=== PATIENT | male | born 1985 | race Caucasian/White ===

== ENCOUNTER 2021-03-29 10:46 | Emergency (ER) | payer BC, OTHER ==
[~2021-03-29] VITALS: Ht 182.8 cm; Wt 111.1 kg
[2021-03-29] MEDS ORDERED: NS IV 1000 ML 1,000 ML ONE (10:54)
--- NOTE | 2021-03-29 11:02 | ED Cardiac General ---
History of Present Illness General Stated Complaint: ELEV HR; CHEST PAIN Source: patient Exam Limitations: no limitations History of Present Illness Date Seen by Provider: Mar 29, 2021 Time Seen by Provider: 10:46 Initial Comments 36-year-old male with no significant past medical history coming in because he feels like his heart is racing. This started roughly 20 minutes prior to arrival. He states he has never had anything like this happen before. His symptoms he says are moderate to severe, constant, nothing he does seems to make it go away in the last 20 minutes. Denies any real chest pain, shortness of breath, fever, nausea, vomiting, abdominal pain, diarrhea, dysuria, weakness, numbness, or any other concerns. Denies any family history of early cardiac . Denies any personal history of blood clots in his legs or lungs. He says he drinks alcohol but only a small amount, denies tobacco use, denies any drug use. He states he drinks 1 soda a day, but otherwise not drink any caffeine or other stimulants. Allergies and Home Medications Allergies Coded Allergies: No Known Drug Allergies (Unverified , 03/29/21) Patient Home Medication List Home Medication List Reviewed: Yes Review of Systems Review of Systems Constitutional: No fever EENTM: No Blurred Vision Respiratory: Denies Cough, Denies Shortness of Air Cardiovascular: Denies Chest Pain; Palpitations Gastrointestinal: Denies Abdominal Pain, Denies Diarrhea, Denies Nausea, Denies Vomiting Genitourinary: Denies Burning Musculoskeletal: No back pain Skin: No rash Psychiatric/Neurological: Denies Anxiety, Denies Depressed Endocrine: No Symptoms Reported Hematologic/Lymphatic: No Symptoms Reported All Other Systems Reviewed Negative Unless Noted: Yes Past [id number] Hx Patient Social History Tobacco Use?: No Substance use?: No Alcohol Use?: Yes Alcohol Frequency: Once in a while Past Medical History Surgeries: No Family Medical History No Pertinent Family Hx Physical Exam Vital Signs Capillary Refill : Height, Weight, BMI Height: '" Weight: lbs. oz. kg; BMI Method: General Appearance: No Apparent Distress, WD/WN HEENT: PERRL/EOMI, Normal ENT Inspection, Pharynx Normal Neck: Full Range of Motion, Normal Inspection, Supple Respiratory: Chest Non Tender, Lungs Clear, Normal Breath Sounds, No Accessory Muscle Use, No Respiratory Distress Cardiovascular: No Edema, No Murmur, Normal Peripheral Pulses, Tachycardia Gastrointestinal: Normal Bowel Sounds, Non Tender, Soft; No Distended, No Guarding Extremity: Normal Capillary Refill, Normal Inspection, Normal Range of Motion, Non Tender, No Calf Tenderness Neurologic/Psychiatric: Alert, No Motor/Sensory Deficits, Normal Mood/Affect Skin: Normal Color, Warm/Dry Lymphatic: No Adenopathy Progress/Results/Core Measures Results/Orders My Orders Orders - PEREZ ADAM MD Iv 1000 Ml (Sodium Chloride 0.9%) (03/29/21 10:54) Progress Progress Note : Progress Note 36-year-old male with above history coming in due to palpitations. ABCs were intact although he was very tachycardic to the 180s to 210s on arrival. It was narrow and regular and was SVT. Blood pressure was actually hypertensive during the event. He was alert and oriented during this time and was perfusing. Corrected with a modified Valsalva maneuver. Repeat EKG sinus rhythm. IV was placed he was given a bolus of fluids given he has been outside in the heat and sweating, and dehydration certainly could have played a part in him going into SVT. He states this is never happened before. Given that, I will defer cardiology referral at this time and just recommend he follow-up with his primary care provider. He was monitored for a time with reevaluation's by myself to ensure he continued to be in sinus rhythm, and then he was discharged home in stable condition with strict return precautions. Initial ECG Impression Date: Mar 29, 2021 Initial ECG Impression Time: 10:50 Initial ECG Rate: 97 Initial ECG Rhythm: Normal Sinus Comment Normal sinus rhythm with a rate of 97, narrow QRS, normal axis, no significant ST elevation or T wave abnormalities, QTc 393, no delta wave, no Brugada sign Departure Impression Primary Impression: SVT (supraventricular tachycardia) Disposition: 01 HOME, SELF-CARE Condition: Improved Departure-Patient Inst. Patient Instructions: Supraventricular Tachycardia (SVT) Add. Discharge Instructions: You were seen in the emergency department because your heart was racing and your chest was hurting. You were in a rhythm called supraventricular tachycardia or SVT. This is fairly common among young individuals. You can try doing the maneuver we attempted in the emergency department which is called the modified Valsalva maneuver if this occurs again. If you start feeling these palpitations and you are unable to get them to stop, please call 911 and go to the emergency department. They are often from dehydration or too much stimulants such as caffeine. Sometimes there is no cause at all. If this becomes a problem and continues to recur, I would recommend you follow-up with a merchandise processor. Please follow-up with your primary care provider later this week however for recheck. PEREZ ADAM MD Mar 29, 2021 11:02
[2021-03-29 11:27] VITALS: BP 130/85
[2021-03-29] MEDS ORDERED: LORazepam 0.5 MG (ATIVAN) TABLET PO STA (11:38)
== END 2021-03-29 11:45 | disposition home or self-care (01) ==
LOC: EDBD 10:48 → ER FS 10:48
DX: I47.1 Supraventricular tachycardia (principal)
CPT/HCPCS: 93005

== ENCOUNTER → 2021-04-23 | Outpatient (CLI) | payer BC ==
[2021-04-23 09:55] LABS: HEMOGLOBIN 11.8 g/dL (13.3-17.7); MEAN CORPUSCULAR HEMOGLOBIN 24 pg (25-34); WHITE BLOOD COUNT 4.7 10^3/uL (4.3-11.0)
[2021-04-23 09:56] LABS: BASOPHILS % (AUTO) 1 % (0-10); EOSINOPHILS # (AUTO) 0.3 10^3/uL (0.0-0.3); EOSINOPHILS % (AUTO) 5 % (0-10); HEMATOCRIT 38 % (40-54); LYMPHOCYTES # (AUTO) 1.5 X 10^3 (1.0-4.0); LYMPHOCYTES % (AUTO) 31 % (12-44); MEAN CORPUSCULAR HGB CONC 31 g/dL (32-36); MEAN CORPUSCULAR VOLUME 80 fL (80-99); MEAN PLATELET VOLUME 10.4 fL (9.0-12.2); MONOCYTES # (AUTO) 0.4 X 10^3 (0.0-1.0); MONOCYTES % (AUTO) 9 % (0-12); NEUTROPHILS # (AUTO) 2.5 X 10^3 (1.8-7.8); NEUTROPHILS % (AUTO) 54 % (42-75); PLATELET COUNT 259 10^3/uL (130-400)
[2021-04-23 10:18] LABS: POTASSIUM 4.6 MMOL/L (3.6-5.0)
[2021-04-23 10:19] LABS: ALBUMIN 4.2 GM/DL (3.2-4.5); BILIRUBIN,TOTAL 0.4 MG/DL (0.1-1.0); CALCIUM 9.1 MG/DL (8.5-10.1); CREATININE SERUM 1.07 MG/DL (0.60-1.30)
== END ==
LOC: LAB FS 09:01
PROVIDERS: ATTEND Internal Medicine Cardiovascular Disease
DX: I47.1 Supraventricular tachycardia (principal)
CPT/HCPCS: 36415; 80053; 80061; 84443; 85025

== ENCOUNTER → 2021-05-10 | Outpatient (CLI) | payer BC, OTHER | LOC: CARD 09:00 | PROVIDERS: ATTEND Internal Medicine Cardiovascular Disease | DX: I47.1 Supraventricular tachycardia (principal) | CPT/HCPCS: 93306 ==